=== PATIENT | female | born 1980 | race Caucasian/White ===

== ENCOUNTER → 2016-11-22 | Outpatient (CLI) | payer BC ==
[~2016-11-22] MED LIST: DERMOPLAST SPRA56 GM TOP; MOTRIN800 MG PO; PERCOCET 5-3251 EACH PO; PRENATAL 1+1)(P1 TAB PO
== END | disposition disaster alternative care site (69) ==
LOC: GLAB 08:00
DX: Z36 Encounter for antenatal screening of mother (principal)